=== PATIENT | male | born 2000 | race Caucasian/White ===

== ENCOUNTER 2024-10-26 20:03 | Emergency (ER) | payer BC, SELFPAY ==
[2024-10-26 20:06] VITALS: BP 128/88
[2024-10-26 23:46] VITALS: BP 139/94
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
== END 2024-10-26 23:49 | disposition home or self-care (01) ==
LOC: EMR 20:03
PROVIDERS: EMERGENCY PHYSICIAN Student in an Organized Health Care Education/Training Program
DX: S63.502A Unspecified sprain of left wrist, initial encounter (principal); S00.83XA Contusion of other part of head, initial encounter; V43.52XA Car driver injured in collision with other type car in traffic accident, initial encounter
CPT/HCPCS: 99284; 70110; 73110